=== PATIENT | female | born 1965 | race Caucasian/White ===

== ENCOUNTER 2022-08-02 14:41 | Observation (INO) | payer MEDICAID, SELFPAY ==
[2022-08-02] VITALS (19 sets, daily range): BP systolic 115–180; BP diastolic 57–103; PULSE 60–90; RESP 17–19; TEMP 37.1; O2SAT 91–98; BMI 26.9; BMI 27.7
--- NOTE | 2022-08-02 12:52 | IR_ITS ---
APPROVED REPORT Patient Location: Outpatient PROCEDURES Selective coronary angiogram Drug-eluting stent deployment to the proximal mid and distal dominant right coronary contiguous manner INDICATION Unstable angina, Coronary artery disease Informed consent was obtained prior to the procedure. COMPLICATIONS None Estimated Blood Loss: Less than 10 ML TECHNIQUE One percent lidocaine used to anesthetize the right anterior aspect of the wrist. The right radial artery was accessed via the Seldinger technique. A 6 Gibraltarian sheath was placed in the right radial artery. 150 mg magnesium sulfate, 800 mcg of nitroglycerin, 1mg Lidocaine and 5000 U Heparin were given through the arterial sheath. The papa catheter was also used to perform selective coronary angiography. At the end the diagnostic angiogram therapeutic heparin was administered giving a therapeutic ACT and the guide catheter was placed in right coronary followed by Choice PT extra-support wire. A 4 mm x 38 mm Fitz frontier stent was deployed at 16 rowan reducing the critical stenosis to less than 20%. There was hazy stepdown distally therefore an additional 4 mm x 18 mm Ringgold frontier stent was placed distal to the for stent yet still overlapping it and deployed at 14 rowan. The balloon was brought back and deployed at 16 rowan to mesh the 2 stents. Following this an additional 4 mm x 22 mm Fitz frontier stent was placed in the proximal segment at 18 rowan further reducing the proximal stenosis. The stent also overlapped with a 38 mm stent. The balloon was advanced and deployed in the area that was still less than 20% and deployed at 20 rowan to further post dilate. COLTEN II flow was present at the beginning the procedure with COLTEN-3 flow at the end of the procedure. At the end the procedure the apparatus was removed the sheath was removed and hemostasis was achieved using TR banding patient was transferred to the postop putting in stable condition ANGIOGRAPHIC RESULTS The left main artery Normal The left anterior descending artery Has proximal 10% stenoses with mid vessel 30% stenoses followed by a 30 to 40% stenosis immediately distal to a large second diagonal artery. There is additional 30% mid vessel and distal stenosis The circumflex artery Is nondominant and has proximal and mid vessel 20 to 30% stenoses The right coronary artery Massively large dominant vessel and has a proximal 30% stenosis followed by a hazy mid vessel mostly eccentric 80 to 90% stenosis followed by an additional 40% stenosis and additional 30% distal stenosis. Posterior descending artery and posterolateral branch have diffuse 20% stenoses The JEFFERY ventriculogram reveals Not performed The left ventricular end-diastolic pressure Not measured IMPRESSION Critical disease in proximal dominant right coronary as described above successful stenting the proximal mid and distal dominant right coronary artery with 3 contiguous drug-eluting stents reducing the critical stenosis to 0% Persistent mild to moderate disease throughout the LAD and circumflex artery as described above PLAN 1. Brilinta 90 twice daily plus aspirin 81 mg daily 2. Lipitor 80 mg daily with a goal LDL less than 55 3. Add bisoprolol 5 mg daily 4. Low-dose MATT inhibitors 5. Cardiac rehabilitation 6. Avoidance of tobacco products 7. Risk factor modification 8. Because patient had COLTEN II flow down the right coronary artery I recommend she be admitted overnight and monitored with anticipated discharge tomorrow morning Electronically signed by : Jovi Nelson MD 08/02/2022 14:26:46
[2022-08-02 14:10] LABS: Basophils % 0.4 % (0.1-2.0); Eosinophils # 0.2 K/mm3 (0.0-0.4); Eosinophils % 2.4 % (0.1-12.0); Hematocrit 48.1 % (37.0-47.0); Hemoglobin 15.7 g/dL (12.2-16.2); Lymphocytes # 2.3 K/mm3 (0.7-4.5); Lymphocytes % 27.3 % (10-50); Mean Corpuscular HGB Conc 32.6 g/dL (31.8-35.4); Mean Corpuscular Hemoglobin 28.2 pg (27.0-31.2); Mean Corpuscular Volume 86.5 fl (81-99); Mean Platelet Volume 8.1 fl (7.4-10.4); Monocytes # 0.5 K/mm3 (0.1-1.0); Monocytes % 5.7 % (1.7-9.3); Neutrophils # 5.4 K/mm3 (1.8-7.8); Neutrophils % 64.1 % (37.0-80.0); Platelet Count 182 K/mm3 (142-424); Red Blood Count 5.56 M/mm3 (4.20-5.40); Red Cell Distribution Width 14.9 % (11.5-17.5); White Blood Count 8.5 K/mm3 (4.8-10.8)
[2022-08-02 14:16] LABS: Chloride 101 mmol/L (98-107); Potassium 3.6 mmoL/L (3.5-5.1); Sodium 142 mmol/L (136-145)
[2022-08-02 14:19] LABS: Anion Gap 14.6 mEq/L (5-15); Blood Urea Nitrogen 11 mg/dl (7-17); Carbon Dioxide 30 mmol/L (22.0-30.0); Creatinine Clearance Estimated 108 mL/min (50-200); Estimated Glomerular Filt Rate 86 ml/min (>60); GFR (African American) 104 ML/MIN (>60)
[2022-08-02 14:20] LABS: Calcium 9.2 mg/dl (8.4-10.2); Glucose 94 mg/dl (74-100)
[2022-08-02 14:47] LABS: CATHL Activated Clotting Time 376 SEC (74-125)
--- NOTE | 2022-08-02 15:08 | PC.NURSE ---
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
--- NOTE | 2022-08-02 16:24 | EXP.HP ---
History of Present Illness *Admission Date: 08/02/22 *Reason for visit:: Chest pain *History of present illness: Ms. Haywood is a 57-year-old female with history of tobacco use. Presented to cardiology clinic as an outpatient today due to chest pain with exertion that is progressively gotten worse over the past 2 months. Denies any nausea or vomiting. Does complain of some dyspnea with exertion. Given her classic symptoms with referring pain to jaw and arm, worse with exertion, tobacco use history, patient taken urgently to the Data Analytics Architect for unstable angina. Findings of mild coronary artery disease in the circumflex and the LAD. Severe mid vessel stenosis in the dominant RCA. Stenosis intervened on with stenting. Cardiology requested admission for monitoring overnight given patient's symptoms. Admitted for observation. On evaluation, patient is sitting upright in bed and eating dinner. Stable on room air. Still complaining of some mild chest discomfort. [facility] Disclaimer: The information contained in this section may have been updated after the patient was seen, as this information can be updated by other users. Medical History Abnormal electrocardiogram [ECG] [EKG] Acid reflux Chest pain Diaphoresis Diverticulitis Edema of both lower extremities Family history of ischemic heart disease Fatigue Tobacco use Unstable angina Surgical History H/O: hysterectomy Family History Heart attack Brother Father Cancer Mother Hypertension Father Social History Smoking Status: Current every day smoker alcohol intake: current current occupational status: employed Travel in the last 8 weeks: Inside the [place] Review of Systems Review of Systems Review of systems (narrative): 14 point review of systems performed, pertinent positives and negatives as per [facility] Meds Home Medications and Allergies Home Medications Medication Instructions Recorded Confirmed Type aspirin 81 mg tablet,delayed 81 mg PO DAILY CIRCULATION 08/02/22 08/02/22 History release (Kerline Low Dose Aspirin) atorvastatin 10 mg tablet 10 mg PO DAILY Cholesterol 08/02/22 08/02/22 History escitalopram oxalate 20 mg tablet 20 mg PO DAILY Depression 08/02/22 08/02/22 History omeprazole 20 mg capsule,delayed 20 mg PO DAILY GERD 08/02/22 08/02/22 History release valacyclovir 500 mg tablet 500 mg PO BID VIRAL INFECTION 08/02/22 08/02/22 History New Prescriptions to Start Prescriptions: Allergies Allergy/AdvReac Type Severity Reaction Status Date / Time sulfamethoxazole AdvReac Nausea Verified 08/02/22 11:49 [From Bactrim] trimethoprim [From Bactrim] AdvReac Nausea Verified 08/02/22 11:49 Exam Data for Last 24 hours Vital signs and Labs for Last 24 Hours: Temp Pulse Resp BP Pulse Ox 98.8 F 65 17 138/88 96 08/02/22 12:58 08/02/22 16:15 08/02/22 16:15 08/02/22 16:15 08/02/22 16:15 Laboratory Results - last 24 hr 08/02/22 12:45: WBC 8.5, RBC 5.56 H, Hgb 15.7, Hct 48.1 H, MCV 86.5, MCH 28.2, MCHC 32.6, RDW 14.9, Plt Count 182, MPV 8.1, Neut % (Auto) 64.1, Lymph % (Auto) 27.3, [place] % (Auto) 5.7, Eos % (Auto) 2.4, Baso % (Auto) 0.4, Neut # (Auto) 5.4, Lymph # (Auto) 2.3, [place] # (Auto) 0.5, Eos # (Auto) 0.2, Baso # (Auto) 0.0 08/02/22 12:45: Sodium 142, Potassium 3.6, Chloride 101, Carbon Dioxide 30, Anion Gap 14.6, BUN 11, Creatinine 0.70, Estimated Creat Clear 108, Estimated GFR 86, Est GFR ( Amer) 104, Glucose 94, Calcium 9.2 08/02/22 13:59: Activated Clotting Time 376 H* I & O for Last 24 hours: Intake & Output 07/30/22 07/31/22 08/01/22 08/02/22 23:59 23:59 23:59 23:59 Intake Total 0 / 0 Balance 0 / 0 Weight 80.399 kg Constitutional Constitutional: no acute distress *Ro
--- NOTE | 2022-08-02 16:56 | PC.NURSE ---
A&OX4. TOLERATING RA WELL. R RADIAL CATH SITE. AIR BAND STILL IN PLACE, LETTING AIR OUT, NO DRAINAGE NOTED THUS FAR. PT HAS RESTED SINCE ARRIVAL TO FLOOR. SON AT BEDSIDE. PT HAS HAD NO C/O OTHER THAN SOME SORENESS IN CHEST. VSS.
--- NOTE | 2022-08-02 18:12 | PC.NURSE ---
AIR BAND REMOVED FROM R RADIAL SITE. CDI, NO DRAINAGE NOTED, CDI. PRESSURE DRESSING APPLIED, PT TOLERATED WELL. PT HAS BEEN C/O MORE CHEST PAIN. MD GARCIA ORDERED NITRO PASTE. PT STATES SHE FEELS SOA AND IS SLIGHTLY ANXIOUS. NITRO PASTE APPLIED, WILL CONTINUE TO MONITOR PAIN.
--- NOTE | 2022-08-02 18:24 | PC.NURSE ---
Addendum entered by Cindy Root RN 08/02/22 18:51: pt sleeping comfortably in bed upon reassessment. Original Note: PT CONTINUES TO C/O CHEST PAIN AND SOA AFTER ADMINISTRATION OF NITRO. NOTIFIED RADHA AARON, 2MG OF MORPHINE ORDERED AT THIS TIME. GIVEN TO PT, WILL REASSESS PAIN IN 30 MINS. VSS.
[2022-08-02 19:01] LABS: Troponin I 0.15 ng/ml (0.00-0.034)
[2022-08-02 19:56] LABS: Coronavirus 19, PCR Not Detected (NotDetected); Influenza A, PCR Not Detected (NotDetected); Influenza B, PCR Not Detected (NotDetected)
[2022-08-02 21:16] LABS: Troponin I 0.59 ng/ml (0.00-0.034)
--- NOTE | 2022-08-02 21:18 | PC.NURSE ---
reported critical lab troponin of 0.59 to Solis Aburto
[2022-08-03] VITALS: BP 122/69; PULSE 60; PULSE 70; RESP 18; TEMP 37.1; O2SAT 94
[2022-08-03 04:00] VITALS: BP 109/55; PULSE 67; PULSE 70; RESP 20; TEMP 36.9; O2SAT 93; BMI 27.1
[2022-08-03 06:14] LABS: Eosinophils # 0.3 K/mm3 (0.0-0.4); Mean Platelet Volume 8.3 fl (7.4-10.4)
[2022-08-03 06:19] LABS: Chloride 103 mmol/L (98-107); Potassium 4.1 mmoL/L (3.5-5.1); Sodium 138 mmol/L (136-145)
[2022-08-03 06:21] LABS: Blood Urea Nitrogen 15 mg/dl (7-17); Creatinine Clearance Estimated 95 mL/min (50-200); Estimated Glomerular Filt Rate 74 ml/min (>60); GFR (African American) 89 ML/MIN (>60)
[2022-08-03 06:22] LABS: Alanine Aminotransferase 34 U/L (12-78); Albumin Level 4.1 g/dl (3.5-5.0); Albumin/Globulin Ratio 1.7 (1.1-1.8); Alkaline Phosphatase 106 U/L (38-126); Anion Gap 11.1 mEq/L (5-15); Aspartate Amino Transferase 45 U/L (14-36); Bilirubin,Total 1.3 mg/dl (0.2-1.3); Calcium 8.9 mg/dl (8.4-10.2); Carbon Dioxide 28 mmol/L (22.0-30.0); Globulin 2.4 g/dL (1.3-3.2); Glucose 111 mg/dl (74-100); Total Protein,Serum 6.5 g/dl (6.3-8.2)
[2022-08-03 06:35] LABS: Basophils % 0.4 % (0.1-2.0); Eosinophils % 2.5 % (0.1-12.0); Hematocrit 42.5 % (37.0-47.0); Lymphocytes # 2.3 K/mm3 (0.7-4.5); Lymphocytes % 23.6 % (10-50); Mean Corpuscular HGB Conc 32.5 g/dL (31.8-35.4); Mean Corpuscular Hemoglobin 27.5 pg (27.0-31.2); Mean Corpuscular Volume 84.5 fl (81-99); Monocytes # 0.6 K/mm3 (0.1-1.0); Monocytes % 6.2 % (1.7-9.3); Neutrophils # 6.6 K/mm3 (1.8-7.8); Neutrophils % 67.3 % (37.0-80.0); Platelet Count 170 K/mm3 (142-424); Red Blood Count 5.03 M/mm3 (4.20-5.40); Red Cell Distribution Width 15.1 % (11.5-17.5); White Blood Count 9.8 K/mm3 (4.8-10.8)
[2022-08-03 06:37] LABS: Hemoglobin 13.8 g/dL (12.2-16.2)
[2022-08-03 08:00] VITALS: BP 102/58; PULSE 68; PULSE 71; RESP 18; TEMP 36.8; O2SAT 93
--- NOTE | 2022-08-03 08:44 | EXP.DC.SUM ---
General Admission date:: 08/02/22 Discharge date: 08/03/22 HPI HPI HPI: Ms. Haywood is a 57-year-old female with history of tobacco use. Presented to cardiology clinic as an outpatient today due to chest pain with exertion that is progressively gotten worse over the past 2 months. Denies any nausea or vomiting. Does complain of some dyspnea with exertion. Given her classic symptoms with referring pain to jaw and arm, worse with exertion, tobacco use history, patient taken urgently to the Circus Supervisor for unstable angina. Findings of mild coronary artery disease in the circumflex and the LAD. Severe mid vessel stenosis in the dominant RCA. Stenosis intervened on with stenting. Cardiology requested admission for monitoring overnight given patient's symptoms. Admitted for observation. On evaluation, patient is sitting upright in bed and eating dinner. Stable on room air. Still complaining of some mild chest discomfort. Hospital Course Hospital Course Hospital Course: 57-year-old female with unstable angina.? Taken to Circus Supervisor with identification of severe stenosis in the mid RCA.? Status post stenting.? Discussed case with cardiology. Monitored overnight given NSTEMI. Remained stable on telemetry. Stable for discharge home. Problems addressed as follows: NSTEMI Unstable angina CAD - Patient taken to Circus Supervisor from clinic. Found to have critical disease in proximal dominant right coronary artery. Successful stenting to the proximal mid and distal dominant right coronary artery with 3 contiguous stents. Still has some mild to moderate disease through the LAD and circumflex. See catheter report for full details. Initiated on Brilinta, given her shortness of breath, transition to Plavix. Recommend she load this evening with 4 tablets (300 mg) with transition to regular 75 mg dose once daily starting tomorrow. Increase Lipitor to 80 mg daily for goal LDL less than 55. Continue aspirin 81 mg daily. Initiated on bisoprolol 5 mg daily and low dose ramipril. Cardiology recommends cardiac rehab. Stable for discharge home. Close follow-up with cardiology. Tobacco use disorder -Counseled on smoking cessation.? Risk factor modification to decrease risk for further SD/CAD. Spent 40 minutes in discharge counseling and direct care with patient. Exam Data for Last 24 hours Vital signs and Labs for Last 24 Hours: Temp Pulse Resp BP Pulse Ox 98.2 F 68 18 102/58 L 93 L 08/03/22 08:00 08/03/22 08:00 08/03/22 08:00 08/03/22 08:00 08/03/22 08:00 Laboratory Results - last 24 hr 08/02/22 12:45: WBC 8.5, RBC 5.56 H, Hgb 15.7, Hct 48.1 H, MCV 86.5, MCH 28.2, MCHC 32.6, RDW 14.9, Plt Count 182, MPV 8.1, Neut % (Auto) 64.1, Lymph % (Auto) 27.3, [place] % (Auto) 5.7, Eos % (Auto) 2.4, Baso % (Auto) 0.4, Neut # (Auto) 5.4, Lymph # (Auto) 2.3, [place] # (Auto) 0.5, Eos # (Auto) 0.2, Baso # (Auto) 0.0 08/02/22 12:45: Sodium 142, Potassium 3.6, Chloride 101, Carbon Dioxide 30, Anion Gap 14.6, BUN 11, Creatinine 0.70, Estimated Creat Clear 108, Estimated GFR 86, Est GFR ( Amer) 104, Glucose 94, Calcium 9.2 08/02/22 13:59: Activated Clotting Time 376 H* 08/02/22 18:05: Troponin I 0.15 H 08/02/22 19:50: SARS-CoV-2 (PCR) Not detected, Influenza A Untype (PCR) Not detected, Influenza Type B (PCR) Not detected 08/02/22 20:40: Troponin I 0.59 H 08/03/22 05:48: WBC 9.8, RBC 5.03, Hgb 13.8 D, Hct 42.5, MCV 84.5, MCH 27.5, MCHC 32.5, RDW 15.1, Plt Count 170, MPV 8.3, Neut % (Auto) 67.3, Lymph % (Auto) 23.6, [place] % (Auto) 6.2, Eos % (Auto) 2.5, Baso % (Auto) 0.4, Neut # (Auto) 6.6, Lymph # (Auto) 2.3, [place] # (Auto) 0.6, Eos # (Auto) 0.3, Baso # (Auto) 0.0 08/03/22 05:48: Sodium 138, Potassium 4.1, Chloride 103, Carbon Dioxide 28, Anion Gap 11.1, BUN 15 D, Creatinine 0.80, Estimated Creat Clear 95, Estimated GFR 74, Est GFR ( Amer) 89, Glucose 111 H, Calcium 8.9, Magnesium 2.0, Total Bilirubin 1.3, AST 45 H, ALT 34, Alkaline Phosphatase 106, Total Prot
[2022-08-03 11:52] VITALS: BP 109/67; PULSE 64; RESP 16; TEMP 36.8; O2SAT 97
[2022-08-03 12:00] VITALS: PULSE 59
--- NOTE | 2022-08-03 12:58 | HMH.PHAINT1 ---
Pharmacy Intervention Comments: Patient's discharge medications discussed with patient and patient's son: - Atorvastatin 80mg (muscle pain/weakness, same medication as before but increased from 10mg to 80mg) - Bisoprolol Furmate (fatigue, light headedness, avoid standing up/moving too fast) - Clopidogrel (take 4 tablets tonight as bridging therapy, 1 tablet everyday after, watch for increased risk of bleeding) - ramipril (watch blood pressure and risk of cough) - pantoprazole (change from omeprazole) No further questions at this time. -Wilber Farooq, Pharm Student
--- NOTE | 2022-08-03 13:07 | HMH.PHACL ---
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
--- NOTE | 2022-08-04 13:18 | CARE MANAGER ---
Called and spoke with patient regarding recent discharge. 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 She had no complaints or questions at time of call.
== END 2022-08-03 13:21 | disposition home or self-care (01) ==
LOC: 2ND 14:42
PROVIDERS: Internal Medicine; Admitting Provider Internal Medicine Adolescent Medicine; PCP Family Medicine; Visit Provider Internal Medicine Adolescent Medicine
DX: I25.110 Atherosclerotic heart disease of native coronary artery with unstable angina pectoris; F17.210 Nicotine dependence, cigarettes, uncomplicated; Z82.49 Family history of ischemic heart disease and other diseases of the circulatory system; I21.4 Non-ST elevation (NSTEMI) myocardial infarction; Z79.899 Other long term (current) drug therapy
CPT/HCPCS: 36415; 80048; 80053; 83735; 84484; 85025; 85347; 87635; 87636; 92928; 93454; 99152; 99153; C1725; C1769; C1876; C9600; C9803; G0378; J1644; Q9967; U0003; U0005

== ENCOUNTER → 2022-08-11 12:38 | Outpatient (CLI) | payer MEDICAID, SELFPAY | PROVIDERS: PCP Family Medicine; Visit Provider Internal Medicine | DX: I20.0 Unstable angina (principal); R07.9 Chest pain, unspecified; R53.83 Other fatigue; R60.0 Localized edema; R61 Generalized hyperhidrosis; R94.31 Abnormal electrocardiogram [ECG] [EKG]; Z72.0 Tobacco use; Z82.49 Family history of ischemic heart disease and other diseases of the circulatory system | CPT/HCPCS: 93306 ==

== ENCOUNTER → 2022-08-17 10:32 | Outpatient (CLI) | payer MEDICAID, SELFPAY ==
[2022-08-17 10:49] LABS: Hematocrit 34.9 % (37.0-47.0); Hemoglobin 11.8 g/dL (12.2-16.2)
[2022-08-17 10:54] LABS: Blood Urea Nitrogen 7 mg/dl (7-17); Estimated Glomerular Filt Rate 74 ml/min (>60); GFR (African American) 89 ML/MIN (>60)
== END ==
PROVIDERS: PCP Family Medicine; Visit Provider Internal Medicine
DX: I25.10 Atherosclerotic heart disease of native coronary artery without angina pectoris (principal); I11.9 Hypertensive heart disease without heart failure; Z72.0 Tobacco use
CPT/HCPCS: 36415; 82565; 84520; 85014; 85018